=== PATIENT | male | born 1970 | race African-American/Black ===

== ENCOUNTER 2017-09-03 21:47 | Emergency (ER) | payer SELFPAY ==
[2017-09-03] MEDS ORDERED: ONDANSETRON HCL INJ/PF 4 MG/2 ML SDV IV ONE (22:49)
[2017-09-03] MEDS ORDERED: HYDROMORPHONE HCL INJ/PF 2 MG/ML AMPULE IV ONE (22:49)
[2017-09-03 23:11] LABS: APPEARANCE,URINE SLIGHTLY-CLOUDY; BILIRUBIN,URINE NEGATIVE (NEGATIVE); GLUCOSE, URINE NEGATIVE (NEGATIVE); KETONES,URINE NEGATIVE (NEGATIVE); LEUKOCYTE ESTERASE,URINE NEGATIVE (NEGATIVE); NITRITE,URINE NEGATIVE (NEGATIVE); PROTEIN,URINE 100 mg/dL (NEGATIVE); URINE SPECIFIC GRAVITY 1.027
[2017-09-03] MEDS ORDERED: KETOROLAC TROMETHAMINE INJ/PF 30 MG/1 ML SDV IV ONE (23:13)
--- NOTE | 2017-09-03 23:23 | ER Document Report ---
ED General - General Chief Complaint: Abdominal Pain Stated Complaint: LEFT SIDE ABDOMINAL PAIN Time Seen by Provider: 09/03/17 22:35 Mode of Arrival: Ambulatory Information source: Patient TRAVEL OUTSIDE OF THE [place] IN LAST 30 DAYS: No - HPI Patient complains to provider of: left side pain Onset: Just prior to arrival Quality of pain: Pressure, Stabbing Severity: Severe Pain Level: 5 Associated symptoms: Nausea. denies: Vomiting Exacerbated by: Denies Relieved by: Denies Similar symptoms previously: Yes - kidney stone a few years ago Recently seen / treated by doctor: No Notes: This is a 46-year-old -Welsh male who presents emergency department in acute pain. He is planing of left flank pain that radiates to his low back area as well as to his left testicle. He states it started suddenly just prior to arrival and there is no aggravating or alleviating factors he had similar pain a few years back and he was diagnosed with a kidney stone - Related Data Allergies/Adverse Reactions: Milk Containing Products [Milk Products] Allergy (Unknown, Verified 04/28/15 18: 30) CHOCOLATE Allergy (Uncoded 04/28/15 18:30) decongestants Adverse Reaction (Mild, Uncoded 04/28/15 18:30) Sweats Past Medical History - General Information source: Patient - Social History Smoking Status: Current Every Day Smoker Cigarette use (# per day): Yes Chew tobacco use (# tins/day): No Smoking Education Provided: Yes Frequency of alcohol use: None Drug Abuse: None Lives with: Family Family History: Reviewed & Not Pertinent Patient has suicidal ideation: No Patient has homicidal ideation: No - Past Medical History Cardiac Medical History: Reports: None Pulmonary Medical History: Reports: Hx Bronchitis EENT Medical History: Reports: None Neurological Medical History: Reports: None Endocrine Medical History: Reports: None Renal/ Medical History: Reports: Hx Kidney Stones. Denies: Hx Peritoneal Dialysis Malignancy Medical History: Reports None GI Medical History: Reports: None Musculoskeltal Medical History: Reports None Skin Medical History: Reports None Psychiatric Medical History: Reports: None Past Surgical History: Reports: Hx Abdominal Surgery - bowel obstruction at 19 y /o, Hx Appendectomy - Immunizations Immunizations up to date: Yes Hx Diphtheria, Pertussis, Tetanus Vaccination: Yes History of Influenza Vaccine for 06/2017 - 11/2017 Season: No Review of Systems - Review of Systems Constitutional: No symptoms reported EENT: No symptoms reported Cardiovascular: No symptoms reported Respiratory: No symptoms reported Gastrointestinal: See HPI, Nausea. denies: Vomiting Genitourinary: No symptoms reported Male Genitourinary: Testicular pain - Left Skin: No symptoms reported Hematologic/Lymphatic: No symptoms reported Neurological/Psychological: No symptoms reported Physical Exam - Vital signs Vitals: Temp Pulse Resp BP Pulse Ox 97.5 F 67 18 154/81 H 100 09/03/17 21:48 09/03/17 21:48 09/03/17 21:48 09/03/17 21:48 09/03/17 21:48 - Notes Notes: PHYSICAL EXAMINATION: GENERAL: Well-appearing, well-nourished and in marked distress due to left flank pain. HEAD: Atraumatic, normocephalic. EYES: Pupils equal round and reactive to light, extraocular movements intact, sclera anicteric, conjunctiva are normal. ENT: Nares patent, oropharynx clear without exudates. Moist mucous membranes. NECK: Normal range of motion, supple without lymphadenopathy LUNGS: Breath sounds clear to auscultation bilaterally and equal. No wheezes rales or rhonchi. HEART: Regular rate and rhythm without murmurs ABDOMEN: Soft, nontender, nondistended abdomen. No guarding, no rebound. No masses appreciated. Nonreproducible left flank pain. Musculoskeletal: Normal range of motion, no pitting or edema. No cyanosis. NEUROLOGICAL: Cranial nerves grossly intact. Normal speech, normal gait. Normal sensory, motor exams PSYCH: Normal mood, normal affect. SKIN: Warm, Dry, normal turgor, no rashes or lesions noted. Course - Re-evaluation Re-evalutation: 09/03/17 23:22 Pt. states dilaudid did help the pain somewhat but he is still having mild pain. Toradol ordered. 09/04/17 00:12 Pt. pain free. I did review CT findings as well as d/c plan. Pt. is agreeable to discharge plan and aware that he should return if he has high fevers inability to urinate or any other concerns - Vital Signs Vital signs: Temp Pulse Resp BP Pulse Ox 97.5 F 67 18 154/81 H 100 09/03/17 21:48 09/03/17 21:48 09/03/17 21:48 09/03/17 21:48 09/03/17 21:48 - Laboratory Result Diagrams: 09/03/17 23:35 09/03/17 22:42 Laboratory results interpreted by me: 09/03/17 09/03/17 09/03/17 22:42 22:42 23:35 WBC 18.2 H RDW 15.4 H Absolute Neutrophils 14.1 H Glucose 171 H Urine Protein 100 H Urine Blood LARGE H Urine Urobilinogen 2.0 H Discharge - Discharge Clinical Impression: Ureterolithiasis, High blood sugar Condition: Stable Disposition: HOME, SELF-CARE Instructions: Kidney Stone ([facility]) Additional Instructions: Return to the emergency department immediately if you are unable to urinate, high fevers, intractable pain or any other concerns. Your sugar was slightly elevated today please follow-up with your primary medical doctor to have this rechecked and further evaluation is needed Prescriptions: Hydrocodone/Acetaminophen [Riesel 5-325 mg Tablet] 1 tab PO Q6 #15 tablet Referrals: ALEXA METZGER MD [NO LOCAL MD] - Follow up in 3-5 days (call in am for appointment. ) ARIANNA DE LEON MD [EMERITUS] - Follow up in 3-5 days (call in am for appointment)
--- NOTE | 2017-09-03 23:26 | RADIOLOGY REPORT (SQ) ---
EXAM DESCRIPTION: CT LTD RENAL STONE PROTOCOL ON COMPLETED DATE/TIME: 09/03/2017 11:14 pm REASON FOR STUDY: left flank pain COMPARISON: 08/08/2015 TECHNIQUE: CT scan of the abdomen and pelvis performed without intravenous or oral contrast. Images reviewed with lung, soft tissue, and bone windows. Reconstructed coronal and sagittal MPR images revi ewed. All images stored on PACS. All CT scanners at this facility use dose modulation, iterative reconstruction, and/or weight based d osing when appropriate to reduce radiation dose to as low as reasonably achievable (ALARA). [facility]: Dose Right [facility]: CareDose [facility]: Dose Right [facility]: Teradose 4D [facility]: Smart Mobileum RADIATION DOSE: CT Rad equipment meets quality standard of care and radiation dose reduction techniq ues were employed. CTDIvol: 8.2 mGy. DLP: 436 mGy-cm.mGy. LIMITATIONS: None. FINDINGS: LOWER CHEST: No significant findings. No nodules or infiltrates. NON-CONTRASTED LIVER, SPLEEN, ADRENALS: Evaluation limited by lack of IV contrast. No identified sign ificant masses. PANCREAS: No masses. No peripancreatic inflammatory changes. GALLBLADDER: No identified stones by CT criteria. No inflammatory changes to suggest cholecystitis. RIGHT KIDNEY AND URETER: No suspicious masses. Assessment limited by lack of IV contrast. No signif icant calcifications. No hydronephrosis or hydroureter. LEFT KIDNEY AND URETER: No suspicious masses. Assessment limited by lack of IV contrast. 4 mm calci fied stone in the bladder portion of the distal left ureter with moderate hydronephrosis - hydrourete r. AORTA AND RETROPERITONEUM: No aneurysm. No retroperitoneal masses or adenopathy. BOWEL AND PERITONEAL CAVITY: No obvious masses or inflammatory changes. No free fluid. APPENDIX: Surgically absent. PELVIS, BLADDER, AND ABDOMINAL WALL:No abnormal masses. No free fluid. Bladder normal. BONES: No significant findings. OTHER: No other significant finding. IMPRESSION: 4 mm calcified stone in the bladder portion of the distal left ureter with moderate hydr onephrosis - hydroureter. COMMENT: Quality ID # [id number]: Final reports with documentation of one or more dose reduction techniques (e.g., Automated exposure control, adjustment of the mA and/or kV according to patient size, use of iterative reconstruction technique) TECHNICAL DOCUMENTATION: JOB ID: [id number] [place]-72 2010 [employer]- All Rights Reserved
[2017-09-03 23:34] LABS: ALANINE AMINOTRANSFERASE 25 U/L (21-72); ALBUMIN 4.4 g/dL (3.5-5.0); ALKALINE PHOSPHATASE 73 U/L (38-126); ANION GAP 13 (5-19); ASPARTATE AMINO TRANSFERASE 24 U/L (17-59); BILIRUBIN,DIRECT 0.4 mg/dL (0.0-0.4); BILIRUBIN,TOTAL 0.4 mg/dL (0.2-1.3); BLOOD UREA NITROGEN 15 mg/dL (7-20); CALCIUM 9.4 mg/dL (8.4-10.2); CARBON DIOXIDE 24 mmol/L (22-30); CHLORIDE 105 mmol/L (98-107); CREATININE RESULT 1.01 mg/dL (0.52-1.25); GLUCOSE 171 mg/dL (75-110); LIPASE 106.8 U/L (23-300); POTASSIUM 4.9 mmol/L (3.6-5.0); SODIUM 142.2 mmol/L (137-145); TOTAL PROTEIN 7.6 g/dL (6.3-8.2)
[2017-09-03 23:42] LABS: ABSOLUTE NEUT (AUTO) 14.1 10^3/uL (1.7-8.2); BASOPHILS % (AUTO) 0.3 % (0-2); EOSINOPHILS % (AUTO) 0.1 % (0-6); HEMATOCRIT 44.9 % (37.9-51.0); HEMOGLOBIN 14.6 g/dL (13.5-17.0); HGB HCT DIFFERENCE -1.1; LYMPHOCYTES % (AUTO) 16.3 % (13-45); MEAN CORPUSCULAR HEMOGLOBIN 28.2 pg (27.0-33.4); MEAN CORPUSCULAR HGB CONC 32.6 g/dL (32.0-36.0); MEAN CORPUSCULAR VOLUME 86 fl (80-97); MONOCYTES % (AUTO) 5.4 % (3-13); RED BLOOD COUNT 5.19 10^6/uL (4.35-5.55); RED CELL DISTRIBUTION WIDTH 15.4 % (11.5-14.0); SEGMENTED NEUTROPHILS % (AUTO) 77.9 % (42-78); WHITE BLOOD COUNT 18.2 10^3/uL (4.0-10.5)
[2017-09-03] MEDS ORDERED: HYDROCODONE/ACETAMINOPHEN 5-325 MG 6 TAB/DSPK PO PRN (23:59)
[2017-09-04] MEDS ORDERED: ONDANSETRON ODT 4 MG TAB (6 TAB/DSPK) PO PRN
[2017-09-04 00:21] VITALS: BP 124/60
== END 2017-09-04 00:20 | disposition home or self-care (01) ==
LOC: ER 21:47
DX: N13.2 Hydronephrosis with renal and ureteral calculous obstruction (principal); R73.9 Hyperglycemia, unspecified; R11.0 Nausea; R10.9 Unspecified abdominal pain; N50.812 Left testicular pain; F17.210 Nicotine dependence, cigarettes, uncomplicated; Z91.018 Allergy to other foods; Z91.011 Allergy to milk products
CPT/HCPCS: 99284; 96374; 96375; 36415; 83690; 85025; 80053; 81001; 76380; J1885; J1170; J2405

== ENCOUNTER 2018-03-10 01:28 | Emergency (ER) | payer SELFPAY ==
[2018-03-10] MEDS ORDERED: ASPIRIN 81 MG TABLET, CHEWABLE PO ONE (03:00)
--- NOTE | 2018-03-10 03:07 | ER Document Report ---
ED General - General Chief Complaint: Chest pain, weak,blurred vision, back pain Stated Complaint: CHEST FEELS WEIRD Time Seen by Provider: 03/10/18 02:59 Mode of Arrival: Ambulatory Information source: Patient Notes: 47 yr old male no past medical hx who also does not have a pcp presents with complaints of a "weird sensation" in his chest since 10pm, pt denies any fevers or chills, denies any nausea vomiting or diarrhea. pt admits he feels weak, denies any actual chest pain, denies any previous similar complaints, admits that he is having blurry vision, feels like he cant catch his breath TRAVEL OUTSIDE OF THE [place] IN LAST 30 DAYS: No - HPI Onset: Just prior to arrival Onset/Duration: Sudden Quality of pain: Other Severity: Mild Pain Level: Denies Associated symptoms: Shortness of breath, Weakness Exacerbated by: Denies Relieved by: Denies Similar symptoms previously: No Recently seen / treated by doctor: No - Related Data Allergies/Adverse Reactions: Milk Containing Products [Milk Products] Allergy (Unknown, Verified 04/28/15 18: 30) CHOCOLATE Allergy (Uncoded 04/28/15 18:30) decongestants Adverse Reaction (Mild, Uncoded 04/28/15 18:30) Sweats Past Medical History - Social History Smoking Status: Current Every Day Smoker Cigarette use (# per day): Yes Chew tobacco use (# tins/day): No Smoking Education Provided: No Frequency of alcohol use: None Drug Abuse: None Family History: Other - biological father had PR which was cocaine induced Patient has suicidal ideation: No Patient has homicidal ideation: No Pulmonary Medical History: Reports: Hx Bronchitis Renal/ Medical History: Reports: Hx Kidney Stones. Denies: Hx Peritoneal Dialysis Past Surgical History: Reports: Hx Abdominal Surgery - bowel obstruction at 19 y /o, Hx Appendectomy - Immunizations Immunizations up to date: Yes Hx Diphtheria, Pertussis, Tetanus Vaccination: Yes Review of Systems - Review of Systems Notes: REVIEW OF SYSTEMS: CONSTITUTIONAL : Denies fever, chills, or sweats. Denies recent illness. EENT: Denies eye, ear, throat, or mouth pain or symptoms. Denies nasal or sinus congestion or discharge. Denies throat, tongue, or mouth swelling or difficulty swallowing. CARDIOVASCULAR: admits to odd sensation in chest RESPIRATORY: Denies cough, cold, or chest congestion. admits to not being able to catch his breath GASTROINTESTINAL: Denies abdominal pain or distention. Denies nausea, vomiting , or diarrhea. Denies blood in vomitus, stools, or per rectum. Denies black, tarry stools. Denies constipation. GENITOURINARY: Denies difficulty urinating, painful urination, burning, frequency, blood in urine, or discharge. MUSCULOSKELETAL: Denies back or neck pain or stiffness. Denies joint pain or swelling. SKIN: Denies rash, lesions or sores. HEMATOLOGIC : Denies easy bruising or bleeding. LYMPHATIC: Denies swollen, enlarged glands. NEUROLOGICAL: admits to dizziness if he lays flat, but okay to walk around PSYCHIATRIC: Denies anxiety or stress. Denies depression, suicidal ideation, or homicidal ideation. ALL OTHER SYSTEMS REVIEWED AND NEGATIVE. Dictation was performed using [employer] voice recognition software PHYSICAL EXAMINATION: GENERAL: Well-appearing, well-nourished and in no acute distress. HEAD: Atraumatic, normocephalic. EYES: Pupils equal round and reactive to light, extraocular movements intact, sclera anicteric, conjunctiva are normal. ENT: Nares patent, oropharynx clear without exudates. Moist mucous membranes. NECK: Normal range of motion, supple without lymphadenopathy LUNGS: Breath sounds clear to auscultation bilaterally and equal. No wheezes rales or rhonchi. HEART: Regular rate and rhythm without murmurs ABDOMEN: Soft, nontender, nondistended abdomen. No guarding, no rebound. No masses appreciated. Musculoskeletal: Normal range of motion, no pitting or edema. No cyanosis. NEUROLOGICAL: Cranial nerves grossly intact. Normal speech, normal gait. Normal sensory, motor exams PSYCH: Normal mood, normal affect. SKIN: Warm, Dry, normal turgor, no rashes or lesions noted. Physical Exam - Vital signs Vitals: Temp Pulse Resp BP Pulse Ox 97.8 F 70 16 133/69 H 98 03/10/18 01:43 03/10/18 01:43 03/10/18 01:43 03/10/18 01:43 03/10/18 01:43 Course - Re-evaluation Re-evalutation: 03/10/18 03:12 pts presentation is a bit odd, there is no pain but he has an odd sensation in the chest therefore a cardiac workup is pending. 03/10/18 05:54 2 sets of cardiac enzymes were negative, patient will be sent for cardiology evaluations otherwise well-appearing no distress, I have low suspicion for a cardiac event I do not believe this is an PR, I believe this is angina however I do believe a information technology administrator is appropriate for further evaluation After performing a Medical Screening Examination, I estimate there is LOW risk for RUPTURED ESOPHAGUS, PNEUMOTHORAX, PULMONARY EMBOLISM, ACUTE CORONARY SYNDROME, OR THORACIC AORTIC DISSECTION, thus I consider the discharge disposition reasonable. I have reevaluated this patient multiple times and no significant life threatening changes are noted. The patient and I have discussed the diagnosis and risks, and we agree with discharging home with close follow-up. We also discussed returning to the Emergency Department immediately if new or worsening symptoms occur. We have discussed the symptoms which are most concerning (e.g., bloody sputum, worsening pain or shortness of breath) that necessitate immediate return. - Vital Signs Vital signs: Temp Pulse Resp BP Pulse Ox 97.8 F 70 18 135/81 H 96 03/10/18 01:43 03/10/18 01:43 03/10/18 05:02 03/10/18 05:02 03/10/18 05:02 - Laboratory Result Diagrams: 03/10/18 02:30 03/10/18 02:30 Laboratory results interpreted by me: 03/10/18 03/10/18 03/10/18 02:30 02:30 05:05 RBC 5.59 H RDW 15.8 H Glucose 117 H Creatine Kinase 678 H 564 H - Diagnostic Test Radiology reviewed: Image reviewed, Reports reviewed - EKG Interpretation by Mo EKG shows normal: Sinus rhythm, [place], Intervals, QRS Complexes Discharge - Discharge Clinical Impression: Chest discomfort Condition: Stable Disposition: HOME, SELF-CARE Instructions: Chest Pain of Unclear Cause ([facility]) Additional Instructions: Please take full dose aspirin daily until seen by information technology administrator return immediately if there are any other concerns Referrals: CHANDAN FREITAS MD [ACTIVE STAFF] - Follow up tomorrow
[2018-03-10 03:20] LABS: ALANINE AMINOTRANSFERASE 27 U/L (21-72); ALBUMIN 4.5 g/dL (3.5-5.0); ALKALINE PHOSPHATASE 79 U/L (38-126); ANION GAP 11 (5-19); ASPARTATE AMINO TRANSFERASE 42 U/L (17-59); BILIRUBIN,DIRECT 0.4 mg/dL (0.0-0.4); BILIRUBIN,TOTAL 0.5 mg/dL (0.2-1.3); BLOOD UREA NITROGEN 16 mg/dL (7-20); CALCIUM 9.6 mg/dL (8.4-10.2); CARBON DIOXIDE 29 mmol/L (22-30); CHLORIDE 105 mmol/L (98-107); CREATINE KINASE 678 U/L (55-170); GLUCOSE 117 mg/dL (75-110); POTASSIUM 4.7 mmol/L (3.6-5.0); SODIUM 144.9 mmol/L (137-145)
[2018-03-10 03:23] LABS: ABSOLUTE BASOPHILS # (AUTO) 0.1 10^3/uL (0.0-0.2); ABSOLUTE EOSINOPHILS # (AUTO) 0.2 10^3/uL (0.0-0.6); ABSOLUTE LYMPHOCYTES (AUTO) 3.2 10^3/uL (0.5-4.7); ABSOLUTE MONOCYTES (AUTO) 0.7 10^3/uL (0.1-1.4); ABSOLUTE NEUT (AUTO) 4.5 10^3/uL (1.7-8.2); BASOPHILS % (AUTO) 0.6 % (0-2); EOSINOPHILS % (AUTO) 2.3 % (0-6); HEMATOCRIT 47.8 % (37.9-51.0); HEMOGLOBIN 15.8 g/dL (13.5-17.0); LYMPHOCYTES % (AUTO) 37.4 % (13-45); MEAN CORPUSCULAR HEMOGLOBIN 28.3 pg (27.0-33.4); MEAN CORPUSCULAR HGB CONC 33.1 g/dL (32.0-36.0); MEAN CORPUSCULAR VOLUME 86 fl (80-97); MONOCYTES % (AUTO) 7.8 % (3-13); PLATELET COUNT 183 10^3/uL (150-450); RED BLOOD COUNT 5.59 10^6/uL (4.35-5.55); RED CELL DISTRIBUTION WIDTH 15.8 % (11.5-14.0); SEGMENTED NEUTROPHILS % (AUTO) 51.9 % (42-78); TOTAL CELLS COUNTED % (AUTO) 100 %; WHITE BLOOD COUNT 8.6 10^3/uL (4.0-10.5)
[2018-03-10 03:31] LABS: CREATINE KINASE MB 2.78 ng/mL (<4.55)
[2018-03-10 03:32] LABS: TROPONIN I < 0.012 ng/mL
--- NOTE | 2018-03-10 03:46 | RADIOLOGY REPORT (SQ) ---
EXAM DESCRIPTION: XR CHEST 1 VIEW COMPLETED DATE/TME: 03/10/2018 03:00 CLINICAL HISTORY: 47 years Male, chest pain COMPARISON: None. NUMBER OF VIEWS/TECHNIQUE: 1/AP FINDINGS: Adequate lung volume, clear parenchyma, normal cardiac silhouette, and intact bony thorax. IMPRESSION: No acute cardiopulmonary findings.
[2018-03-10 05:52] LABS: CREATINE KINASE MB 2.72 ng/mL (<4.55); TROPONIN I < 0.012 ng/mL
[2018-03-10 06:02] VITALS: BP 140/85
--- NOTE | 2018-03-10 09:38 | EKG REPORT ---
SEVERITY:- NORMAL ECG - SINUS RHYTHM ST ELEV, PROBABLE NORMAL EARLY REPOL PATTERN : Confirmed by: Mirta Barron 10-Mar-2018 09:37:32
== END 2018-03-10 06:07 | disposition home or self-care (01) ==
LOC: ER 01:28
DX: R09.89 Other specified symptoms and signs involving the circulatory and respiratory systems (principal); R53.1 Weakness; H53.8 Other visual disturbances; R06.02 Shortness of breath; Z91.011 Allergy to milk products; Z91.018 Allergy to other foods; F17.210 Nicotine dependence, cigarettes, uncomplicated
CPT/HCPCS: 36415; 71045; 80053; 82550; 82553; 84484; 85025; 93005; 93010; 99285

== ENCOUNTER 2019-09-17 01:37 | Emergency (ER) | payer SELFPAY ==
[2019-09-17 02:36] LABS: ABSOLUTE BASOPHILS # (AUTO) 0.1 10^3/uL (0.0-0.2); ABSOLUTE EOSINOPHILS # (AUTO) 0.2 10^3/uL (0.0-0.6); ABSOLUTE LYMPHOCYTES (AUTO) 2.1 10^3/uL (0.5-4.7); ABSOLUTE NEUT (AUTO) 5.8 10^3/uL (1.7-8.2); BASOPHILS % (AUTO) 0.9 % (0-2); EOSINOPHILS % (AUTO) 2.6 % (0-6); HEMATOCRIT 46.6 % (37.9-51.0); HEMOGLOBIN 15.5 g/dL (13.5-17.0); LYMPHOCYTES % (AUTO) 22.9 % (13-45); MEAN CORPUSCULAR HEMOGLOBIN 28.5 pg (27.0-33.4); MEAN CORPUSCULAR HGB CONC 33.3 g/dL (32.0-36.0); MEAN CORPUSCULAR VOLUME 86 fl (80-97); MONOCYTES % (AUTO) 10.4 % (3-13); PLATELET COUNT 171 10^3/uL (150-450); RED BLOOD COUNT 5.44 10^6/uL (4.35-5.55); RED CELL DISTRIBUTION WIDTH 15.3 % (11.5-14.0); SEGMENTED NEUTROPHILS % (AUTO) 63.2 % (42-78); TOTAL CELLS COUNTED % (AUTO) 100 %; WHITE BLOOD COUNT 9.2 10^3/uL (4.0-10.5)
[2019-09-17 02:47] LABS: APPEARANCE,URINE CLEAR; BILIRUBIN,URINE NEGATIVE (NEGATIVE); COLOR,URINE YELLOW; GLUCOSE, URINE NEGATIVE (NEGATIVE); KETONES,URINE TRACE mg/dL (NEGATIVE); LEUKOCYTE ESTERASE,URINE NEGATIVE (NEGATIVE); NITRITE,URINE NEGATIVE (NEGATIVE); PROTEIN,URINE >=500 mg/dL (NEGATIVE); URINE SPECIFIC GRAVITY 1.025
--- NOTE | 2019-09-17 02:55 | RADIOLOGY REPORT (SQ) ---
EXAM DESCRIPTION: X-ray single view chest. CLINICAL HISTORY: 48 years Male, wheezing COMPARISON: 03/10/2018 TECHNIQUE: Single portable x-ray view of the chest performed on 09/17/2019 at 2:36 AM FINDINGS: The lungs are well expanded and are clear. There is no evidence of a pneumothorax. The cardiac silhouette is normal in size and configuration. The mediastinal contours are normal. No acute osseous abnormality is identified. No focal soft tissue abnormalities are seen. Lines and tubes: None. IMPRESSION: No evidence of acute intrathoracic disease.
[2019-09-17 02:57] LABS: ALBUMIN 4.6 g/dL (3.5-5.0); ALKALINE PHOSPHATASE 73 U/L (38-126); ANION GAP 13 (5-19); ASPARTATE AMINO TRANSFERASE 27 U/L (17-59); BILIRUBIN,DIRECT 0.2 mg/dL (0.0-0.4); BILIRUBIN,TOTAL 0.4 mg/dL (0.2-1.3); BLOOD UREA NITROGEN 14 mg/dL (7-20); CALCIUM 9.8 mg/dL (8.4-10.2); CARBON DIOXIDE 28 mmol/L (22-30); CHLORIDE 100 mmol/L (98-107); CREATINE KINASE 629 U/L (55-170); GLUCOSE 90 mg/dL (75-110); TOTAL PROTEIN 8.2 g/dL (6.3-8.2)
[2019-09-17 03:08] LABS: CREATINE KINASE MB 3.09 ng/mL (<4.55)
[2019-09-17 03:13] LABS: TROPONIN I < 0.012 ng/mL
[2019-09-17] MEDS ORDERED: NORMAL SALINE 1000 ML 1,000 ML IV ONE (08:58)
--- NOTE | 2019-09-17 10:03 | ER Document Report ---
ED General - General Chief Complaint: Flu Symptoms Stated Complaint: BODY ACHES Time Seen by Provider: 09/17/19 08:44 TRAVEL OUTSIDE OF THE [place] IN LAST 30 DAYS: No - HPI Notes: Patient is a 48-year-old male who presents emergency department for evaluation. He has had a cough and congestion for the last 10 days. He has had body aches. He denies any nausea or vomiting. He states he is unsure as to whether or not he is had any fevers, as he has been taking ibuprofen [id number]. He is unable to take any sort of decongestants [id number], as they caused his eczema to flare significantly. He states he does have generalized body aches, denies any chest pain or shortness of breath. He has been eating and drinking normally, but according to steel pickler, he does not drink enough. He has been working and visiting with family, not getting much rest. He drinks an excessive amount of caffeine. At 2 separate times during the course of his illness, he states that he felt as if he was going to pass out. He states that everything "went white" and he was seeing "small dots." He states this lasted for a few seconds. He denied any other symptoms associated with that. He denies any re cent head injury. - Related Data Allergies/Adverse Reactions: Milk Containing Products [Milk Products] Allergy (Unknown, Verified 09/17/19 01:56) CHOCOLATE Allergy (Uncoded 09/17/19 01:56) decongestants Adverse Reaction (Mild, Uncoded 09/17/19 01:56) Sweats Home Medications: None Past Medical History - General Information source: Patient - Social History Smoking Status: Current Every Day Smoker Chew tobacco use (# tins/day): No Frequency of alcohol use: None Drug Abuse: None Family History: Other - biological father had OR which was cocaine induced Patient has suicidal ideation: No Patient has homicidal ideation: No Pulmonary Medical History: Reports: Hx Bronchitis Renal/ Medical History: Reports: Hx Kidney Stones. Denies: Hx Peritoneal Dialysis Skin Medical History: Reports Hx Eczema Past Surgical History: Reports: Hx Abdominal Surgery - bowel obstruction at 19 y/o, Hx Appendectomy - Immunizations Immunizations up to date: Yes Hx Diphtheria, Pertussis, Tetanus Vaccination: Yes Review of Systems - Review of Systems Constitutional: See HPI EENT: No symptoms reported Cardiovascular: No symptoms reported Respiratory: See HPI Gastrointestinal: No symptoms reported Genitourinary: No symptoms reported Musculoskeletal: No symptoms reported Skin: No symptoms reported Neurological/Psychological: See HPI Physical Exam - Vital signs Vitals: Temp Pulse Resp BP Pulse Ox 98.4 F 82 20 158/79 H 100 09/17/19 01:52 09/17/19 01:52 09/17/19 01:52 09/17/19 01:52 09/17/19 01:52 - Notes Notes: Vital signs reviewed, please refer to chart. Head is normocephalic, atraumatic. Pupils equal round, reactive to light. Neck is supple without meningismus. Heart is regular rate and rhythm. Lungs are clear to auscultation bilaterally. Abdomen is soft, nontender, normoactive bowel sounds throughout. Extremities without cyanosis, clubbing. Posterior calves are nontender. Peripheral pulses are equal. Skin is warm and dry. Patient is awake, alert, oriented x3. Cranial nerves II - XII are grossly intact without focal neurological deficits. Strength is plus 5 out of 5 bilateral upper and lower extremities. Sensation is intact. Reflexes symmetrical. Intact [id number], rapid alternating movements, [id number]. Course - Re-evaluation Re-evalutation: 09/17/19 10:02 Patient presents emergency department for evaluation. He has findings consistent with some sort of viral illness. His vital signs reveal some mild h ypertension but otherwise are unremarkable. His chest x-ray is unremarkable. Blood work is unremarkable. He had orthostatic vital signs performed which were unremarkable as well. He was given IV fluids. I do not have a clear etiology for this patient's near syncope. I did discuss with him that there is no decongestant and Robitussin, this might help him with his cough. He states has been having difficulty resting as a result of his cough, so I encouraged him to try this. He was amenable to this. Otherwise, he needs to get some rest. I will give him a work excuse, encouraged him to take the day off work for further recuperation. He is otherwise to return to the ED with worsening or new concerning symptoms of any sort. - Vital Signs Vital signs: Temp Pulse Resp BP Pulse Ox 98.4 F 80 22 H 128/82 H 98 09/17/19 06:55 09/17/19 09:54 09/17/19 06:55 09/17/19 09:54 09/17/19 06:55 - Laboratory Result Diagrams: 09/17/19 02:10 09/17/19 02:10 Laboratory results interpreted by me: 09/17/19 09/17/19 09/17/19 02:10 02:10 02:10 RDW 15.3 H Creatine Kinase 629 H Urine Protein >=500 H Urine Ketones TRACE H Urine Blood MODERATE H Urine Urobilinogen 2.0 H - Diagnostic Test Radiology reviewed: Reports reviewed Radiology results interpreted by me: 09/17/19 10:03 Chest X-Ray 09/17/19 00:00 IMPRESSION: No evidence of acute intrathoracic disease. - EKG Interpretation by Me Additional EKG results interpreted by me: 09/17/19 10:03 Sinus mechanism with a rate of 85 bpm. Normal axis and intervals. Early repolarization. No significant change compared to prior study. Discharge - Discharge Clinical Impression: Near syncope Acute bronchitis Qualifiers: Bronchitis organism: unspecified organism Qualified Code(s): J20.9 - Acute bronchitis, unspecified Condition: Stable Disposition: HOME, SELF-CARE Instructions: Bronchitis ([facility]), Near Syncopal Episode ([facility]) Additional Instructions: Rest, stay well-hydrated. Consider trying [id number] Robitussin for your cough. Follow-up with primary care next week. If you have any worsening or new concerning symptoms of any sort, please return immediately to the emergency de partment for evaluation. Forms: Elevated Blood Pressure, Smoking Cessation Education, Return to Work
[2019-09-17 11:18] VITALS: BP 150/80
--- NOTE | 2019-09-17 13:44 | EKG REPORT ---
SEVERITY:- BORDERLINE ECG - SINUS RHYTHM PROBABLE LEFT ATRIAL ABNORMALITY ST ELEV, PROBABLE NORMAL EARLY REPOL PATTERN : Confirmed by: Ct Drake MD 17-Sep-2019 13:44:07
== END 2019-09-17 11:18 | disposition home or self-care (01) ==
LOC: ER 01:37
DX: J20.9 Acute bronchitis, unspecified (principal); R55 Syncope and collapse; M79.10 Myalgia, unspecified site; R05 Cough; R09.81 Nasal congestion; L30.9 Dermatitis, unspecified; F17.200 Nicotine dependence, unspecified, uncomplicated
CPT/HCPCS: 93005; 99284; 96360; 36415; 82553; 82550; 85025; 80053; 81001; 84484; 71045; 93010; J7030

== ENCOUNTER 2020-01-11 02:11 | Emergency (ER) | payer SELFPAY ==
[2020-01-11 02:26] VITALS: BP 154/77
[2020-01-11] MEDS ORDERED: DEXAMETHASONE SOD PHOS INJ 10 MG/1 ML VIAL IM ONE (02:44)
--- NOTE | 2020-01-11 02:46 | ER Document Report ---
HPI - HPI Time Seen by Provider: 01/11/20 02:27 Pain Level: 5 Context: Patient is a 49-year-old male that comes emergency department for chief complaint of left ear pain. He states this is been going on for the past couple of days, he was cleaning out his ears and flushing with peroxide, he states the pain in his ear resolved but now he has pain just below his ear and along his neck. He denies difficulty swallowing, neck stiffness, sore throat, fever/chills, nausea/vomiting, headache, fever. He denies any daily medications or any diagnosed medical history. He states he just wants to be sure there is no concerning infection in his ear or an insect in his ear. - CONSTITUTIONAL Constitutional: DENIES: Fever, Chills - EENT EENT: REPORTS: Ear Pain - NEURO Neurology: REPORTS: Dizzinesss / Vertigo Past Medical History - General Information source: Patient - Social History Smoking Status: Current Every Day Smoker Frequency of alcohol use: None Drug Abuse: None Lives with: Family Family History: Other - biological father had MT which was cocaine induced Patient has suicidal ideation: No Patient has homicidal ideation: No Pulmonary Medical History: Reports: Hx Bronchitis Renal/ Medical History: Reports: Hx Kidney Stones. Denies: Hx Peritoneal Dialysis Skin Medical History: Reports Hx Eczema Past Surgical History: Reports: Hx Abdominal Surgery - bowel obstruction at 19 y/o, Hx Appendectomy - Immunizations Immunizations up to date: Yes Hx Diphtheria, Pertussis, Tetanus Vaccination: Yes Vertical Provider Document - CONSTITUTIONAL General Appearance: WD/WN, No Apparent Distress - INFECTION CONTROL TRAVEL OUTSIDE OF THE [place] IN LAST 30 DAYS: No - HEENT HEENT: Atraumatic, Normocephalic. negative: Normal ENT Exam - Sinus exam unremarkable, oropharyngeal exam unremarkable, right ear unremarkable, left ear is actually unremarkable as well with no tragus tenderness, normal mastoid, no inflammation of the canal, unremarkable tympanic membrane. Patient does have tender lymph nodes in the auricular area and also down in the anterior cervical area on the left. No evidence of Eliot's angina. No erythema, abnormal heat, severe tenderness, or concerning swelling. - NECK Neck: Normal Inspection - RESPIRATORY Respiratory: Breath Sounds Normal, No Respiratory Distress - CARDIOVASCULAR Cardiovascular: Regular Rate, Regular Rhythm - GI/ABDOMEN Gastrointestinal: Abdomen Soft, Abdomen Non-Tender - BACK Back: Normal Inspection - MUSCULOSKELETAL/EXTREMETIES Musculoskeletal/Extremeties: MAEW, FROM, Non-Tender - NEURO Level of Consciousness: Awake, Alert, Appropriate Motor/Sensory: No Motor Deficit, No Sensory Deficit - DERM Integumentary: Warm, Dry, No Rash Course - Re-evaluation Re-evalutation: Patient is reported history sounds like otitis externa which is not clearly present on his current exam, he does have some lymphadenopathy which is mildly painful but there are no concerning findings otherwise. Unremarkable evaluation otherwise. Patient will follow-up with primary care for recheck of blood pressure. Discussed treatment, discussed return precautions at length. Patient states appreciation and agreement with plan. Stable and well-appearing at time of discharge. - Vital Signs Vital signs: Temp Pulse Resp BP Pulse Ox 98.2 F 71 16 154/77 H 98 01/11/20 02:16 01/11/20 02:16 01/11/20 02:16 01/11/20 02:16 01/11/20 02:16 Discharge - Discharge Clinical Impression: Left ear pain, Cervical adenopathy Condition: Stable Disposition: HOME, SELF-CARE Additional Instructions: Your evaluation indicates swollen lymph nodes. No foreign body, insect, or concerning infection is seen. You have been treated for the swelling, this should simply resolve, take Tylenol or ibuprofen for pain. Continue to clean your ears with isopropyl alcohol or peroxide periodically. Follow-up with primary care. Return for any concerning symptoms including severe worsening pain, swelling, fever, vomiting, or any other concerning symptoms. Forms: Elevated Blood Pressure
== END 2020-01-11 03:00 | disposition home or self-care (01) ==
LOC: ER 02:11
DX: H92.02 Otalgia, left ear (principal); R59.0 Localized enlarged lymph nodes; R42 Dizziness and giddiness; F17.200 Nicotine dependence, unspecified, uncomplicated
CPT/HCPCS: 99282; J1100

== ENCOUNTER 2020-07-09 23:57 | Emergency (ER) | payer SELFPAY ==
[2020-07-10 01:33] VITALS: BP 149/70
== END 2020-07-10 02:00 | disposition left against medical advice (07) ==
LOC: ER 23:57
DX: Z53.21 Procedure and treatment not carried out due to patient leaving prior to being seen by health care provider (principal)

== ENCOUNTER 2020-09-25 00:29 | Emergency (ER) | payer SELFPAY ==
[2020-09-25] MEDS ORDERED: IBUPROFEN 600 MG TABLET PO ONE ×2 (00:56→06:00)
--- NOTE | 2020-09-25 00:58 | ER Document Report ---
ED Medical Screen (RME) - General Chief Complaint: Headache Stated Complaint: HEADACHE/NO TASTE OR SMELL/CHILLS Time Seen by Provider: 09/25/20 00:38 Primary Care Provider: LUPIS DIA [Primary Care Provider] - Follow up as needed TRAVEL OUTSIDE OF THE [place] IN LAST 30 DAYS: No - HPI Patient complains to provider of: Flulike symptoms, loss of taste Notes: 09/25/20 00:57 Patient here with complaints of chills, body aches, cough, loss of appetite, headache, fever and loss of taste. Patient works at [employer]. He denies any known specific close contacts with [employer]id but is around a lot of people at work. He is concerned that he may have Covid or the flu. No chest pain or shortness of breath. Does complain of some nausea and decreased appetite. Exam: No distress, nontoxic appearing. Lungs clear to go throughout. Heart sounds normal. Throat exam normal. An initial examination was made on the patient as part of the triage process, and it was determined a more comprehensive evaluation was necessary. Initial orders were placed and patient was transferred to another provider in the ED who assumed care and finished evaluation and plan. - Related Data Allergies/Adverse Reactions: Milk Containing Products [Milk Products] Allergy (Unknown, Verified 01/11/20 02:18) CHOCOLATE Allergy (Uncoded 09/17/19 01:56) decongestants Adverse Reaction (Mild, Uncoded 09/17/19 01:56) Sweats Past Medical History Pulmonary Medical History: Reports: Hx Bronchitis Renal/ Medical History: Reports: Hx Kidney Stones. Denies: Hx Peritoneal Dialysis Skin Medical History: Reports Hx Eczema Past Surgical History: Reports: Hx Abdominal Surgery - bowel obstruction at 19 y/o, Hx Appendectomy - Immunizations Immunizations up to date: Yes Hx Diphtheria, Pertussis, Tetanus Vaccination: Yes Physical Exam - Vital signs Vitals: Temp Pulse BP Pulse Ox 101.7 F H 107 H 138/87 H 97 09/25/20 00:34 09/25/20 00:34 09/25/20 00:34 09/25/20 00:34 Course - Vital Signs Vital signs: Temp Pulse Resp BP Pulse Ox 101.7 F H 107 H 138/87 H 97 09/25/20 00:34 09/25/20 00:34 09/25/20 00:34 09/25/20 00:34 Doctor's Discharge - Discharge Referrals: LOCALMD,NO [Primary Care Provider] - Follow up as needed
[2020-09-25 02:53] LABS: A TYPE INFLUENZA AG NEGATIVE (NEGATIVE); B INFLUENZA AG NEGATIVE (NEGATIVE)
[2020-09-25 07:06] VITALS: BP 130/77
--- NOTE | 2020-09-25 07:23 | ER Document Report ---
ED Flu Like - General Chief Complaint: Flu Symptoms Stated Complaint: HEADACHE/NO TASTE OR SMELL/CHILLS Time Seen by Provider: 09/25/20 00:38 Primary Care Provider: LUPIS DIA [LUPIS AYALA MD] - Follow up as needed Mode of Arrival: Ambulatory Information source: Patient Notes: 50-year-old male presented to ED for complaint of body aches cough cold congestion loss of appetite headache and fever with a loss of sense of taste and smell. He works at the [employer]. He states he is does not know of any specific close contact with COVID-19 but he does work around a lot of people. He states he was concerned that he may have flu or COVID-19. He denies any chest pain or shortness of breath but has had decreased appetite. He is alert oriented respirations regular nonlabored lungs clear to auscultation. States his cough is nonproductive. He does smoke a pack a day also states he smokes marijuana lives with his family. He states he has had 3 to 4 days of fever and congestion with loss of smell 24 hours ago. Constitutional: Patient states he has had fevers on and off for the last 3 to 4 days. HENT: Negative for sore throat. Eyes: Negative for visual changes. Cardiovascular: Negative for chest pain. Respiratory: Cough congestion some shortness of breath body aches Gastrointestinal: Negative for abdominal pain, vomiting or diarrhea. Genitourinary: Negative for dysuria. Musculoskeletal: Negative for back pain. Skin: Negative for rash. Neurological: Negative for headaches, weakness or numbness. 10 point ROS negative except as marked above and in HPI. GENERAL: No acute distress, non-toxic appearance. HEAD: Normal with no signs of head trauma. EYES: PERRLA, EOMI, conjunctiva normal, no discharge. EARS: Hearing grossly intact. NOSE: Normal. THROAT: Oropharynx is normal. NECK: Normal range of motion, no tenderness, supple, no lymphadenopathy, No adenopathy, no JVD. CHEST: Clear breath sounds bilaterally. No wheezes, rales, or rhonchi. CARDIAC: Regular rate and rhythm. S1 and S2, without murmurs, gallops, or rubs. VASCULAR: No Edema. Peripheral pulses normal and equal in all extremities. ABDOMEN: Normal and soft with no tenderness, no masses or pulsatile masses. GASTROINTESTINAL: Bowel sounds normal GENITOURINARY: Normal, No tenderness LYMPATHTIC: No lymphadenopathy noted. MUSCULOSKELETAL: Good range of motion of all major joints. Extremities without clubbing, cyanosis or edema. NEUROLOGICAL: Alert and oriented x 3. No focal sensory or strength deficits. Speech normal. Follows commands appropriately. PSYCHIATRIC: Normal Affect, judgement and mood. SKIN: Normal appearance with no rashes or lesions. TRAVEL OUTSIDE OF THE [place] IN LAST 30 DAYS: No - HPI Onset: Other - 4 days Timing/Duration: Intermittent Quality of pain: Achy Severity: Moderate Pain Level: 2 Associated symptoms: Body/muscle aches, Nonproductive cough, Fever, Sinus pain/drainage, Shortness of breath Similar symptoms previously: Yes - For the last 4 days Recently seen / treated by doctor: No - Related Data Allergies/Adverse Reactions: Milk Containing Products [Milk Products] Allergy (Unknown, Verified 09/25/20 03:03) CHOCOLATE Allergy (Uncoded 09/17/19 01:56) decongestants Adverse Reaction (Mild, Uncoded 09/17/19 01:56) Sweats Past Medical History - General Information source: Patient - Social History Smoking Status: Current Every Day Smoker Cigarette use (# per day): Yes - Pack a day Smoking Education Provided: Yes - 3 min Frequency of alcohol use: None Drug Abuse: Marijuana Lives with: Family Family History: Other - biological father had [place] which was cocaine induced Patient has suicidal ideation: No Patient has homicidal ideation: No - Past Medical History Cardiac Medical History: Reports: None Pulmonary Medical History: Reports: Hx Bronchitis EENT Medical History: Reports: None Neurological Medical History: Reports: None Endocrine Medical History: Reports: None Renal/ Medical History: Reports: Hx Kidney Stones Malignancy Medical History: Reports None GI Medical History: Reports: None Musculoskeletal Medical History: Reports None Skin Medical History: Reports Hx Eczema Psychiatric Medical History: Reports: None Traumatic Medical History: Reports: None Infectious Medical History: Reports: None Past Surgical History: Reports: Hx Abdominal Surgery - bowel obstruction at 19 y/o, Hx Appendectomy - Immunizations Immunizations up to date: Yes Hx Diphtheria, Pertussis, Tetanus Vaccination: Yes Physical Exam - Vital signs Vitals: Temp Pulse BP Pulse Ox 101.7 F H 107 H 138/87 H 97 09/25/20 00:34 09/25/20 00:34 09/25/20 00:34 09/25/20 00:34 Course - Re-evaluation Re-evalutation: 09/25/20 07:[address] Cool reading of chest x-ray patient was in for loss of sense of taste and smell fever and flulike symptoms. His Covid has been sent and is pending. The patient was evaluated during the global Covid 19 pandemic, and that diagnosis was suspected/considered upon their initial presentation. Their evaluation, treatment and testing was consistent with current guidelines for patients who present with complaints or symptoms that may be related to Covid 19.. He will be discharged home as a person under investigation. - Vital Signs Vital signs: Temp Pulse Resp BP Pulse Ox 99.2 F 83 18 130/77 H 99 09/25/20 07:04 09/25/20 07:04 09/25/20 07:04 09/25/20 07:04 09/25/20 07:04 - Laboratory Results Critical Laboratory Results Reviewed: No Critical Results - Radiology Results Critical Radiology Results Reviewed: No Critical Results Attending or Supervising Physician who Reviewed Radiology: YASHIRA COOL Discharge - Discharge Clinical Impression: Encounter for screening laboratory testing for COVID-19 virus in asymptomatic patient, Viral syndrome Disposition: HOME, SELF-CARE Instructions: COVID-19 Guidance for Persons Under Investigation Additional Instructions: Viral Syndrome The physician has diagnosed a viral infection. Viruses not only cause "colds," but can cause many different symptoms including generalized aching, fever, headache, cough, diarrhea, nausea, vomiting, and fatigue. The treatment, for the most part, is simply relief of symptoms. This means that antibiotics are usually not given. Rest, fluids, pain medications and, occasionally, medication for the specific symptoms that are most bothersome will be prescribed. Use good handwashing to avoid passing the virus to others. Shared toys should be cleaned with disinfectant. Clean the toilets, sinks, and counter surfaces in bathrooms. Launder clothing in hot water. Contact the physician if you develop any new or unusual symptoms such as severe headache, stiff neck, high fever, chest pain, productive cough, or shortness of breath. You should be rechecked if you don't see marked improvement within seven to 10 days. Acetaminophen Acetaminophen may be taken for pain relief or fever control. It's much safer than aspirin, offering a wider range of "safe" dosages. It is safe during . Some brand names are Tylenol, Panadol, Datril, Anacin 3, Tempra, and Liquiprin. Acetaminophen can be repeated every four hours. The following are maximum recommended dosages: WEIGHT Dose Drops Elixir Chewable(80mg) (LBS.) drprs=droppers tsp=teaspoon 6 40 mg .4 ml (1/2) 6-11 80 mg .8 ml (full) 1/2 tsp 1 tab 12-16 120 mg 1 1/2 drprs 3/4 tsp 1 1/2 tabs 17-23 160 mg 2 drprs 1 tsp 2 tabs 24-30 240 mg 3 drprs 1 1/2 tsp 3 tabs 30-35 320 mg 2 tsp 4 tabs 36-41 360 mg 2 1/4 tsp 4 1/2 tabs 42-47 400 mg 2 1/2 tsp 5 tabs 48-53 480 mg 3 tsp 6 tabs 54-59 520 mg 3 1/4 tsp 6 1/2 tabs 60-64 560 mg 3 1/2 tsp 7 tabs 65-70 600 mg 3 3/4 tsp 7 1/2 tabs 71-76 640 mg 4 tsp 8 tabs 77-82 720 mg 4 1/2 tsp 9 tabs 83-88 800 mg 5 tsp 10 tabs >89 pounds or adults 650 mg to 900 mg Acetaminophen can be repeated every four hours. Maximum daily dose not to exceed 4000 mg. These maximum recommended dosages are slightly higher than the dosages written on the product container, but these dosages are very safe and well below the toxic dosage for acetaminophen. Ibuprofen Ibuprofen is an excellent, safe drug for pain control. In addition, it has potent antiinflammatory effects which are beneficial, especially in the treatment of injuries, arthritis, or tendonitis. It's best to take ibuprofen with food. Persons with ulcer disease or allergy to aspirin should notify their physician of this before taking ibuprofen. Take the medication exactly as prescribed. Don't take additional doses unless instructed to do so by your doctor. If you develop wheezing, shortness of breath, hives, faintness, stomach pain, vomiting, or dark black stools, return for re-evaluation at once. Patient was provided with discharge information including: As a person under investigation for Covid 19, the [facility], division of public health advises you to adhere to the following guidance until your test results are reported to you. If your test result is positive, you will receive additional information from your provider and your local health department at that time. Remain at home until you are cleared by the health provider or public health authorities. Keep a log of visitors to your home, notify any visitors to your home of your isolation status. If you plan to move to a new address or leave the county, notify the local health department in your County. Call your doctor or seek care if you have an urgent medical need. Before seeking medical care, call ahead to get instructions from the provider before arriving at the medical office clinic or hospital. Notify them that you are being tested for the virus that causes Covid 19 so that arrangements can be made, as necessary, to prevent transmission to others in the healthcare setting. Next, notify the local health department in your county. If a medical emergency arises and you need to call 911, inform the first responders that you are being tested for the virus that causes Covid 19. Next, notify the local health department in your county. Forms: Elevated Blood Pressure, Smoking Cessation Education Referrals: LOCAL,NO [NO LOCAL MD] - Follow up as needed [facility] [Provider Group] - Follow up as needed [facility] [Provider Group] - Follow up as needed [facility] [Provider Group] - Follow up as needed
--- NOTE | 2020-09-25 08:06 | RADIOLOGY REPORT (SQ) ---
EXAM DESCRIPTION: CHEST SINGLE VIEW IMAGES COMPLETED DATE/TIME: 09/25/2020 5:52 am REASON FOR STUDY: #1 SYNCOPE COMPARISON: 09/17/2020. EXAM PARAMETERS: NUMBER OF VIEWS: One view. TECHNIQUE: Single frontal radiographic view of the chest acquired. RADIATION DOSE: NA LIMITATIONS: None. FINDINGS: LUNGS AND PLEURA: No opacities, masses or pneumothorax. No pleural effusion. MEDIASTINUM AND HILAR STRUCTURES: No masses. Contour normal. HEART AND VASCULAR STRUCTURES: Heart normal in size. Normal vasculature. BONES: No acute findings. HARDWARE: None in the chest. OTHER: No other significant finding. IMPRESSION: NO ACUTE RADIOGRAPHIC FINDING IN THE CHEST. TECHNICAL DOCUMENTATION: JOB ID: [id number] 2010 [employer]- All Rights Reserved Reading location - IP/workstation name: [email or web address]
== END 2020-09-25 08:19 | disposition home or self-care (01) ==
LOC: ER 00:29
DX: R51.9 Headache, unspecified (principal); B34.9 Viral infection, unspecified; R43.8 Other disturbances of smell and taste; Z20.822 Contact with and (suspected) exposure to COVID-19; R05 Cough; R50.9 Fever, unspecified; F17.210 Nicotine dependence, cigarettes, uncomplicated; Z87.442 Personal history of urinary calculi
CPT/HCPCS: 99284; 87635; 87804; 71045; C9803

== ENCOUNTER 2020-10-01 03:50 | Emergency (ER) | payer SELFPAY ==
--- NOTE | 2020-10-01 07:50 | ER Document Report ---
ED Fever - General Chief Complaint: Fever Stated Complaint: FEVER, BODY CHILLS Time Seen by Provider: 10/01/20 07:50 Mode of Arrival: Ambulatory Information source: Patient Notes: 10/01/20 04:16 - ED Nursing Note by MICHELLE DE JESUS Num: [id number] : 1970 Patient Age: 50 patient presented with fever and body ache09/25/20 and was tested for covid and flu. both were negative. Patient medicating with ibuprofen at home. Chest xray at last visit was normal. Patient has dry cough. Denies sore throat. Patient came to ED for treatment of fever and body aches. Patient stated he is also having dental pain in the upper left gums. Patient with sweat to forehead. Breathing even and unlabored. MY NOTES 50-year-old black male arrives with right lower molar abscess but pain is right upper molar without any sign of caries. Patient reports he began to have fever and myalgias on 25 September and he was negative for Covid and influenza and chest x-ray. He continues to have similar symptoms with dry cough. He denies any changes in his smell or taste or hemoptysis or tuberculosis exposure. He denies any vomiting nausea diarrhea. Denies any skin lesions or nuchal rigidity or earache. He works at [employer] and needs a work note. Patient reports he has eczema and therefore cannot take decongestants because it worsens his eczema. TRAVEL OUTSIDE OF THE [place] IN LAST 30 DAYS: No - HPI Onset: Just prior to arrival Onset/Duration: Sudden, Persistent Quality of pain: Achy. denies: Burning, Cramping, Dull, Fullness, Pressure, Sharp, Stabbing, Throbbing Severity: Moderate Pain Level: 3 Context: denies: Chemotherapy, Congestion, Cough, Decubitus ulcers, Dialysis, HIV/AIDS, MRSA, Nausea/vomiting, Recent pneumonia, Urinary tract infection Associated symptoms: Productive cough, Fever, Weakness. denies: Diarrhea, Drooling, Hoarseness, Hurts to breath, Nausea, Vomiting, Sinus pain/drainage, Shortness of breath, Slow to respond - Related Data Allergies/Adverse Reactions: Milk Containing Products [Milk Products] Allergy (Unknown, Verified 09/25/20 03:03) CHOCOLATE Allergy (Uncoded 09/17/19 01:56) decongestants Adverse Reaction (Mild, Uncoded 09/17/19 01:56) Sweats Past Medical History - General Information source: Patient - Social History Smoking Status: Current Every Day Smoker Cigarette use (# per day): Yes Chew tobacco use (# tins/day): No Smoking Education Provided: Yes Frequency of alcohol use: None Drug Abuse: Marijuana Family History: Reviewed & Not Pertinent, Other - biological father had MA which was cocaine induced Patient has suicidal ideation: No Patient has homicidal ideation: No Pulmonary Medical History: Reports: Hx Bronchitis Renal/ Medical History: Reports: Hx Kidney Stones. Denies: Hx Peritoneal Dialysis Skin Medical History: Reports Hx Eczema Past Surgical History: Reports: Hx Abdominal Surgery - bowel obstruction at 19 y/o, Hx Appendectomy - Immunizations Immunizations up to date: Yes Hx Diphtheria, Pertussis, Tetanus Vaccination: Yes Review of Systems - Review of Systems Constitutional: See HPI, Fever, Malaise, Weakness, Recent illness EENT: See HPI, Nose congestion, Mouth pain, Dental problem Cardiovascular: See HPI, Chest pain Respiratory: See HPI, Cough. denies: Hemoptysis, Short of breath, Sputum, Stridor Gastrointestinal: No symptoms reported Genitourinary: No symptoms reported Male Genitourinary: No symptoms reported Musculoskeletal: No symptoms reported Skin: No symptoms reported Hematologic/Lymphatic: No symptoms reported Neurological/Psychological: See HPI, Weakness. denies: Confusion, Dementia, Anxiety, Hallucinations, Sensory change, Gait changes, Loss of power, Paralysis, Lost consciousness, Headaches, Speech impairment, Numbness, Suicidal ideation, Tingling, Tremor -: Yes All other systems reviewed and negative Physical Exam - Vital signs Vitals: Temp Pulse Resp BP Pulse Ox 99.4 F 90 17 150/99 H 99 10/01/20 04:07 10/01/20 04:07 10/01/20 04:07 10/01/20 04:07 10/01/20 04:07 Interpretation: Hypertensive, Febrile - General General appearance: Appears well, Alert - HEENT Head: Normocephalic, Atraumatic Eyes: Normal Pupils: PERRL Ears: Normal Sinus: Normal Nasal: Normal Mouth/Lips: Caries - Right lower molar with caries to the gumline and upper teeth with no obvious caries but tenderness to the #1 molar on palpation Mucous membranes: Normal Pharynx: Erythema - Posterior pharyngeal mucosa erythemic Neck: Normal - Respiratory Respiratory status: No respiratory distress Chest status: Nontender Breath sounds: Normal Chest palpation: Normal - Cardiovascular Rhythm: Regular Heart sounds: Normal auscultation Murmur: No - Abdominal Inspection: Normal Distension: No distension Bowel sounds: Normal Tenderness: Nontender Organomegaly: No organomegaly - Rectal Prostate: Other - Deferred - Genitourinary Scrotum: Other - Deferred - Back Back: Normal, Nontender - Extremities General upper extremity: Normal inspection, Nontender, Normal color, Normal ROM, Normal temperature General lower extremity: Normal inspection, Nontender, Normal color, Normal ROM, Normal temperature, Normal weight bearing. No: Olya's sign - Neurological Neuro grossly intact: Yes Cognition: Normal Orientation: AAOx4 [place] Coma Scale Eye Opening: Spontaneous [place] Coma Scale Verbal: Oriented [place] Coma Scale Motor: Obeys Commands [place] Coma Scale Total: 15 Speech: Normal Motor strength normal: LUE, RUE, LLE, RLE Sensory: Normal - Psychological Associated symptoms: Normal affect, Normal mood - Skin Skin Temperature: Warm Skin Moisture: Dry Skin Color: Normal Course - Vital Signs Vital signs: Temp Pulse Resp BP Pulse Ox 98.6 F 90 17 150/99 H 99 10/01/20 07:09 10/01/20 04:07 10/01/20 04:07 10/01/20 04:07 10/01/20 04:07 - Laboratory Results Critical Laboratory Results Reviewed: No Critical Results Attending or Supervising Physician who Reviewed Labs: SARAH BETH SWANSON JR - Radiology Results Critical Radiology Results Reviewed: No Critical Results Attending or Supervising Physician who Reviewed Radiology: SARAH BETH SWANSON JR Discharge - Discharge Clinical Impression: Fever Qualifiers: Fever type: unspecified Qualified Code(s): R50.9 - Fever, unspecified Hypertension Qualifiers: Hypertension type: unspecified Qualified Code(s): I10 - Essential (primary) hypertension Condition: Stable Disposition: HOME, SELF-CARE Instructions: COVID-19 Guidance for Persons Under Investigation, Viral Syndrome ([facility]), Fever ([facility]) Additional Instructions: Follow-up with dentist about your dental erosion and dental pain. Also follow- up with your personal doctor because of fever and myalgias. You are being treated with antibiotics today as well as pain medicine. Off work as directed. Make sure you wash your hands and stay away from immunocompromised peoples and people who have had transplants. Also you have mild blood pressure elevation today and you will need a recheck with your personal doctor to evaluate you about the diastolic elevation. Prescriptions: Dexamethasone [Decadron 4 Mg Tablet] 4 mg PO DAILY #5 tablet Cephalexin Monohydrate [Keflex 500 mg Capsule] 500 mg PO TID 10 Days #30 capsule Forms: Return to Work
[2020-10-01] MEDS ORDERED: CEPHALEXIN 500 MG CAPSULE PO ONE (08:30)
[2020-10-01] MEDS ORDERED: HYDROCODONE/ACETAMINOPHEN 5-325 MG (6 TAB/ER DISP) PO PRN (08:30)
[2020-10-01 08:32] VITALS: BP 137/68
== END 2020-10-01 08:54 | disposition home or self-care (01) ==
LOC: ER 03:50
DX: R50.9 Fever, unspecified (principal); R53.1 Weakness; R53.81 Other malaise; F17.210 Nicotine dependence, cigarettes, uncomplicated; I10 Essential (primary) hypertension; Z87.442 Personal history of urinary calculi
CPT/HCPCS: 99284